=== PATIENT | male | born 1945 | race Caucasian/White ===

== ENCOUNTER → 2017-01-23 | Outpatient (CLI) | payer OTHER ==
--- NOTE | 2017-01-23 11:23 | KCIC ---
EXAM: Lumbar spine MRI without contrast. HISTORY: Pain and lower extremity instability. TECHNIQUE: Multiplanar, multisequence magnetic resonance imaging of the lumbar spine was performed without contrast. COMPARISON: None. FINDINGS: There is moderate lumbar levoscoliosis. There is grade 1 anterolisthesis of L5 on S1, measuring 7 mm. There is slight retrolisthesis of L2 on L3 and L3 on L4. There is degenerative endplate remodeling with disc space narrowing and osteophytosis primarily along the right aspect of L3-L4 and L4-L5 and left aspect of L5-S1. This corresponds with levels of maximum scoliotic concavity. There are several endplate Schmorl's nodes. No suspicious osseous lesion is seen. There may be a left pars defect at L5-S1. The conus terminates at L1. At L1-L2, there is no stenosis. At L2-L3, there is a left foraminal to extraforaminal disc protrusion superimposed on a disc bulge and endplate remodeling. There is minimal facet arthropathy. There is mild retrolisthesis. There is mild left foraminal stenosis with abutment of the exiting left L2 nerve root. At L3-L4, there is a right foraminal to lateral disc protrusion with superior foraminal extrusion superimposed on a right lateral predominant disc bulge and endplate osteophytosis. There is mild right facet arthropathy. There is hypertrophy of the ligamentum flavum flavum. There is mild retrolisthesis. There is moderate right and mild left foraminal stenosis with abutment of the exiting right greater than left L3 nerve root. There is mild to moderate central canal stenosis. At L4-L5, there is a right lateral predominant disc bulge and endplate osteophytosis. There is moderate facet arthropathy. There is moderate right and mild left foraminal stenosis with abutment of the exiting right greater than left L4 nerve root. There is mild central canal stenosis and effacement of the left lateral recess. At L5-S1, there is a left lateral predominant disc bulge and endplate osteophytosis. There is severe facet arthropathy. There is grade 1 anterolisthesis with a possible left pars defect. There is moderate to severe left foraminal stenosis with effacement of the exiting left L5 nerve root. There is mild central canal stenosis. IMPRESSION: 1. Multilevel degenerative change throughout the lumbar spine, described in detail above. This results in mild left foraminal stenosis at L2-L3, moderate right and mild left foraminal and [id number] central canal stenosis L3-L4, moderate right and mild left foraminal and mild central canal stenosis L4-L5, and moderate to severe left foraminal and mild central canal stenosis L5-S1. 2. Grade 1 anterolisthesis of L5 on S1. There may be a left pars defect at this level. 3. Lumbar scoliosis and multilevel retrolisthesis. Electronically signed by: Tatyana Francis MD (01/23/2017 11:20 AM)
== END | disposition home or self-care (01) ==
LOC: KCIC MRI 09:23
PROVIDERS: ATTEND Physical Medicine & Rehabilitation
DX: M51.36 Other intervertebral disc degeneration, lumbar region (principal); M48.06 Spinal stenosis, lumbar region; M41.86 Other forms of scoliosis, lumbar region
CPT/HCPCS: 72148